=== PATIENT | female | born 1990 | race Caucasian/White ===

== ENCOUNTER 2018-01-04 17:44 | Emergency (ER) | payer BC ==
[2016-10-05 09:15] VITALS: BMI 50.4
[~2018-01-04 17:44] MED LIST: BIRTH CONTROL; BUPROPION XL300 MG PO; EFFEXOR XR150 MG PO; PROTONIX40 MG PO; TENORMIN50 MG PO
[2018-01-04 18:55] LABS: APPEARANCE CLOUDY (CLEAR); COLOR DK YELLOW (YELLOW)
[2018-01-04 18:56] LABS: BACTERIA MANY /hpf (NONE SEEN); BILIRUBIN NEGATIVE (NEGATIVE); EPITHELIAL CELLS 0-5 /hpf (0-5); GLUCOSE NEGATIVE (NEGATIVE); KETONE NEGATIVE (NEGATIVE); NITRITE NEGATIVE (NEGATIVE); PH 5.5 (5.0-6.0); PROTEIN 1+ mg/dL (NEGATIVE); RED CELLS - URINE 0-5 /hpf (0-5); SPECIFIC GRAVITY 1.025 (1.005-1.020)
[2018-01-04 19:04] LABS: BASOPHILS 0.1 % (0-2); EOSINOPHILS 1.1 % (0-7); HEMATOCRIT 37.9 % (36.0-48.0); HEMOGLOBIN 12.5 g/dL (12-16); IMMATURE GRANULOCYTES 0.1 % (0-5); LYMPHOCYTES 27.3 % (15-50); MCH 27.4 pg (26.0-34.0); MCV 82.9 fL (80.0-100.0); MEAN PLATELET VOLUME 9.9 fL (7.4-10.4); MONOCYTES 7.5 % (2-11); NEUTROPHILS 63.9 % (40-80); RBC 4.57 10x6/uL (4.00-5.40); RDW 14.4 % (11.5-14.5); WBC 7.9 10x3/uL (4.8-10.8)
[2018-01-04 19:07] LABS: PLATELET COUNT 249 10x3/uL (130-400)
[2018-01-04 20:16] LABS: HCG SERUM POSITIVE (NEGATIVE)
== END 2018-01-04 21:38 | disposition home or self-care (01) ==
LOC: D.ER 17:44
PROVIDERS: Family Medicine
DX: O20.9 Hemorrhage in early pregnancy, unspecified (principal); Z3A.10 10 weeks gestation of pregnancy

== ENCOUNTER 2018-05-13 17:55 | Outpatient (CLI) | payer MEDICAID ==
[2016-10-05 09:15] VITALS: BMI 50.4
[2018-05-13 19:02] LABS: APPEARANCE CLOUDY (CLEAR); BACTERIA MODERATE /hpf (NONE SEEN); BILIRUBIN NEGATIVE (NEGATIVE); COLOR DK YELLOW (YELLOW); GLUCOSE NEGATIVE (NEGATIVE); KETONE NEGATIVE (NEGATIVE); MUCUS >1+ /lpf (NONE SEEN); NITRITE NEGATIVE (NEGATIVE); PROTEIN TRACE mg/dL (NEGATIVE); UROBILINOGEN NORMAL (NORMAL)
== END 2018-05-13 20:25 | disposition home or self-care (01) ==
LOC: D.LDO 17:55
PROVIDERS: Obstetrics & Gynecology
DX: O26.899 Other specified pregnancy related conditions, unspecified trimester (principal); Z3A.00 Weeks of gestation of pregnancy not specified

== ENCOUNTER → 2018-06-01 09:24 | Outpatient (CLI) | payer BC ==
[2016-10-05 09:15] VITALS: BMI 50.4
== END | disposition home or self-care (01) ==
LOC: D.LDO 09:24
DX: O26.893 Other specified pregnancy related conditions, third trimester (principal); Z3A.31 31 weeks gestation of pregnancy; R19.7 Diarrhea, unspecified

== ENCOUNTER → 2018-06-29 11:27 | Outpatient (CLI) | payer MEDICAID ==
[2016-10-05 09:15] VITALS: BMI 50.4
[2018-06-29 12:18] LABS: APPEARANCE CLEAR (CLEAR); BILIRUBIN NEGATIVE (NEGATIVE); COLOR YELLOW (YELLOW); GLUCOSE NEGATIVE (NEGATIVE); KETONE NEGATIVE (NEGATIVE); NITRITE NEGATIVE (NEGATIVE); PROTEIN NEGATIVE (NEGATIVE); UROBILINOGEN NORMAL (NORMAL)
== END | disposition home or self-care (01) ==
LOC: D.LDO 11:27
PROVIDERS: Obstetrics & Gynecology
DX: O26.899 Other specified pregnancy related conditions, unspecified trimester (principal); Z3A.00 Weeks of gestation of pregnancy not specified

== ENCOUNTER → 2018-07-06 14:22 | Outpatient (CLI) | payer MEDICAID ==
[2016-10-05 09:15] VITALS: BMI 50.4
[2018-07-06 15:52] LABS: BASOPHILS 0.1 % (0-2); EOSINOPHILS 0.5 % (0-7); HEMATOCRIT 31.4 % (36.0-48.0); IMMATURE GRANULOCYTES 0.2 % (0-5); MCH 25.1 pg (26.0-34.0); MCHC 31.8 g/dL (31.0-37.0); MCV 78.9 fL (80.0-100.0); MEAN PLATELET VOLUME 10.4 fL (7.4-10.4); MONOCYTES 9.7 % (2-11); NEUTROPHILS 62.5 % (40-80); PLATELET COUNT 218 10x3/uL (130-400); RBC 3.98 10x6/uL (4.00-5.40); RDW 14.8 % (11.5-14.5); WBC 8.4 10x3/uL (4.8-10.8)
[2018-07-06 15:52] LABS: APPEARANCE HAZY (CLEAR); BILIRUBIN NEGATIVE (NEGATIVE); COLOR YELLOW (YELLOW); GLUCOSE NEGATIVE (NEGATIVE); KETONE MODERATE mg/dL (NEGATIVE); NITRITE NEGATIVE (NEGATIVE); PROTEIN NEGATIVE (NEGATIVE); SPECIFIC GRAVITY 1.015 (1.005-1.020); UROBILINOGEN NORMAL (NORMAL)
[2018-07-06 15:53] LABS: BACTERIA MODERATE /hpf (NONE SEEN); RED CELLS - URINE OCC /hpf (0-5)
[2018-07-06 16:03] LABS: ALBUMIN 2.4 g/dL (3.4-5.0); ALKALINE PHOSPHATASE 129 U/L (46-116); ALT (SGPT) 12 U/L (10-68); BILIRUBIN - TOTAL 0.28 mg/dL (0.2-1.3); CALC OSMOLALITY 271 mosm/kg (275-300); CALCIUM 8.7 mg/dL (8.5-10.1); CARBON DIOXIDE 23.1 mmol/L (21.0-32.0); CHLORIDE - SERUM 103 mmol/L (98-107); CREATININE - SERUM 0.6 mg/dL (0.6-1.3); GLUCOSE 86 mg/dL (74-106); POTASSIUM - SERUM 3.9 mmol/L (3.5-5.1); PROTEIN - SERUM 6.9 g/dL (6.4-8.2); SODIUM 138 mmol/L (136-145); UREA NITROGEN 4 mg/dL (7-18); URIC ACID 4.7 mg/dL (2.6-7.2); eGFR NON AFRICAN AMERICAN > 90 mL/min (90-120)
[2018-07-06 20:01] LABS: APPEARANCE CLEAR (CLEAR); BILIRUBIN NEGATIVE (NEGATIVE); COLOR YELLOW (YELLOW); GLUCOSE NEGATIVE (NEGATIVE); KETONE NEGATIVE (NEGATIVE); NITRITE NEGATIVE (NEGATIVE); PROTEIN NEGATIVE (NEGATIVE); UROBILINOGEN NORMAL (NORMAL)
[2018-07-06 20:02] LABS: BACTERIA MODERATE /hpf (NONE SEEN); EPITHELIAL CELLS 0-5 /hpf (0-5); RED CELLS - URINE 0-5 /hpf (0-5); WHITE CELLS - URINE 0-5 /hpf (0-5)
== END | disposition home or self-care (01) ==
LOC: D.LDO 14:22
PROVIDERS: Obstetrics & Gynecology
DX: O26.893 Other specified pregnancy related conditions, third trimester (principal); Z3A.36 36 weeks gestation of pregnancy; R51 Headache; R42 Dizziness and giddiness; H53.9 Unspecified visual disturbance; R22.43 Localized swelling, mass and lump, lower limb, bilateral; R07.81 Pleurodynia

== ENCOUNTER 2018-07-07 20:59 | Outpatient (CLI) | payer MEDICAID ==
[2016-10-05 09:15] VITALS: BMI 50.4
--- NOTE | ~2018-07-07 | DS ---
PATIENT:SIMONE GARCÍA :89 MEDICAL RECORD: [id number] DISCHARGE SUMMARY ADMISSION DATE: 07/07/18 DISCHARGE DATE: 07/09/18 DATE OF ADMISSION: 07/07/2018 DATE OF DISCHARGE: 07/09/2018 ADMISSION DIAGNOSES: Persistent headache, history of mild preeclampsia. DISCHARGE DIAGNOSIS: Headache, resolved. ATTENDING: Kaden Birch MD HISTORY OF PRESENT ILLNESS: See the H&P in the chart. SUMMARY OF HOSPITALIZATION: The patient was admitted to the hospital and underwent another 24-hour urine, which this time was less than 300. The patient's pressures have been normotensive at bed rest. The patient received Ambien while hospitalized and was able to rest more. The patient states that her headache abated after adequate rest. The patient will be discharged home on Ambien with modified activities. NSTs and antepartum testing have been initiated previously and that will continue until she is delivered. TRANSINT:[id number] Voice Confirmation ID: [id number] DOCUMENT ID: [id number] KADEN BIRCH MD at 0920 CC: [id number] DICTATION DATE: 07/09/18 0847 PLATE SHEAR OPERATOR: 07/09/18 1143 DEP CLI 07/09/18 [id number] [place] [address]
[2018-07-07 22:51] LABS: BASOPHILS 0.1 % (0-2); HEMATOCRIT 31.1 % (36.0-48.0); HEMOGLOBIN 9.9 g/dL (12-16); IMMATURE GRANULOCYTES 0.1 % (0-5); LYMPHOCYTES 28.2 % (15-50); MCH 25.1 pg (26.0-34.0); MCHC 31.8 g/dL (31.0-37.0); MCV 78.7 fL (80.0-100.0); MEAN PLATELET VOLUME 10.8 fL (7.4-10.4); MONOCYTES 7.9 % (2-11); NEUTROPHILS 62.7 % (40-80); PLATELET COUNT 236 10x3/uL (130-400); RBC 3.95 10x6/uL (4.00-5.40); RDW 14.9 % (11.5-14.5); WBC 9.4 10x3/uL (4.8-10.8)
[2018-07-07 22:52] LABS: APPEARANCE CLEAR (CLEAR); BILIRUBIN NEGATIVE (NEGATIVE); COLOR YELLOW (YELLOW); GLUCOSE NEGATIVE (NEGATIVE); KETONE NEGATIVE (NEGATIVE); NITRITE NEGATIVE (NEGATIVE); PROTEIN NEGATIVE (NEGATIVE); UROBILINOGEN NORMAL (NORMAL)
[2018-07-07 22:53] LABS: WHITE CELLS - URINE 0-5 /hpf (0-5)
[2018-07-07 22:54] LABS: BACTERIA MODERATE /hpf (NONE SEEN); RED CELLS - URINE 0-5 /hpf (0-5)
[2018-07-07 23:10] LABS: ALBUMIN 2.4 g/dL (3.4-5.0); ALKALINE PHOSPHATASE 129 U/L (46-116); ALT (SGPT) 12 U/L (10-68); BILIRUBIN - DIRECT 0.08 mg/dL (0.00-0.30); BILIRUBIN - INDIRECT 0.17 mg/dL (0.00-1.00); BILIRUBIN - TOTAL 0.25 mg/dL (0.2-1.3); CALC OSMOLALITY 274 mosm/kg (275-300); CALCIUM 9.3 mg/dL (8.5-10.1); CARBON DIOXIDE 21.7 mmol/L (21.0-32.0); CHLORIDE - SERUM 103 mmol/L (98-107); CREATININE - SERUM 0.7 mg/dL (0.6-1.3); GLUCOSE 129 mg/dL (74-106); PROTEIN - SERUM 6.9 g/dL (6.4-8.2); SODIUM 138 mmol/L (136-145); UREA NITROGEN 3 mg/dL (7-18); URIC ACID 4.8 mg/dL (2.6-7.2); eGFR NON AFRICAN AMERICAN > 90 mL/min (90-120)
[2018-07-07 23:11] LABS: POTASSIUM - SERUM 3.1 mmol/L (3.5-5.1)
[2018-07-08 21:20] LABS: PROTEIN - URINE 18.4 mg/dL (0.0-11.9)
== END 2018-07-09 09:45 | disposition home or self-care (01) ==
LOC: D.LDO 20:59 → D.LD 20:59 → D.LDO 07-09 09:45
PROVIDERS: Obstetrics & Gynecology
DX: O26.893 Other specified pregnancy related conditions, third trimester (principal); Z3A.37 37 weeks gestation of pregnancy

== ENCOUNTER → 2018-07-12 10:03 | Outpatient (CLI) | payer MEDICAID ==
[2016-10-05 09:15] VITALS: BMI 50.4
[~2018-07-12 10:03] MED LIST changes: +PINDOLOL10 MG PO
== END | disposition home or self-care (01) ==
LOC: D.LDO 10:03
DX: O14.93 Unspecified pre-eclampsia, third trimester (principal); Z3A.37 37 weeks gestation of pregnancy

== ENCOUNTER → 2018-07-16 08:30 | Outpatient (CLI) | payer BC ==
[2016-10-05 09:15] VITALS: BMI 50.4
[~2018-07-16 08:30] MED LIST changes: +IBUPROFEN800 MG PO; +PERCOCET 7.5/321 TAB PO
== END | disposition home or self-care (01) ==
LOC: D.LDO 08:30
DX: O26.893 Other specified pregnancy related conditions, third trimester (principal); Z3A.38 38 weeks gestation of pregnancy

== ENCOUNTER → 2018-07-19 08:30 | Outpatient (CLI) | payer BC ==
[2016-10-05 09:15] VITALS: BMI 50.4
== END | disposition home or self-care (01) ==
LOC: D.LDO 08:30
DX: O26.893 Other specified pregnancy related conditions, third trimester (principal); Z3A.38 38 weeks gestation of pregnancy

== ENCOUNTER → 2018-07-20 11:02 | Outpatient (CLI) | payer BC ==
[2016-10-05 09:15] VITALS: BMI 50.4
== END | disposition home or self-care (01) ==
LOC: D.LDO 11:02
DX: Z00.00 Encounter for general adult medical examination without abnormal findings (principal)

== ENCOUNTER 2018-07-23 05:22 | Inpatient (IN) | payer BC, MEDICAID ==
[2018-07-20 12:10] LABS: HEMATOCRIT 31.3 % (36.0-48.0); HEMOGLOBIN 9.8 g/dL (12-16); MCH 24.5 pg (26.0-34.0); MCHC 31.3 g/dL (31.0-37.0); MCV 78.3 fL (80.0-100.0); MEAN PLATELET VOLUME 10.1 fL (7.4-10.4); RDW 15.3 % (11.5-14.5); WBC 9.1 10x3/uL (4.8-10.8)
[2018-07-21 05:14] LABS: RAPID PLASMA REAGIN Non Reactive (Non Reactive)
[~2018-07-23] VITALS: Ht 149.9 cm; Wt 117.5 kg
[2018-07-23] VITALS (12 sets, daily range): BP systolic 112–137; BP diastolic 66–79; Ht 149.9 cm; Wt 117.5 kg
--- NOTE | ~2018-07-23 | DS ---
PATIENT:SIMONE GARCÍA :89 MEDICAL RECORD: [id number] DISCHARGE SUMMARY ADMISSION DATE: 07/23/18 DISCHARGE DATE: 07/25/18 DATE OF ADMISSION: 07/23/2018 DATE OF DISCHARGE: 07/25/2018 ADMISSION DIAGNOSES: 1. History of trauma. 2. Posttraumatic stress disorder. 3. at 39 weeks' gestation. DISCHARGE DIAGNOSES: 1. History of trauma. 2. Posttraumatic stress disorder. 3. Mother delivered at term. 4. Undesired fertility. PROCEDURE: Primary low transverse section. ATTENDING PHYSICIAN: Kaden Birch MD HISTORY OF PRESENT ILLNESS AND INDICATION FOR DELIVERY: Please see H&P in the chart. SUMMARY OF HOSPITALIZATION: The patient was admitted to the hospital and underwent primary section and tubal ligation without incident. By the day of surgery, the patient is tolerating regular diet and voiding without difficulty. By postoperative day #2, the patient is ambulating, voiding and has no complaints. There is adequate pain control with Percocet and NSAIDs. DISCHARGE MEDICATIONS: Will include Percocet 7.5 mg taken one every 4 hours as needed for rjhbowjo-ny-hdpjvs pain and ibuprofen 800 every 8 hours for 2 days followed by every 8 hours p.r.n. for eyob-ol-jnfdkqkn pain. DISCHARGE INSTRUCTIONS: Standard precautions have been reviewed. Follow up in 2 weeks at [facility]. TRANSINT:[id number] Voice Confirmation ID: [id number] DOCUMENT ID: [id number] KADEN BIRCH MD at 1633 CC: [id number] DICTATION DATE: 07/25/18 1415 DRIP MOLDER: 07/26/18 0144 DIS IN 07/25/18 [facility] [address] [place] [address]
--- NOTE | ~2018-07-23 | OP ---
PATIENT NAME: SIMONE GARCÍA MEDICAL RECORD: [id number] :89 LOCATION:[id number] ADMISSION DATE:07/23/18 SURGEON: WILBUR FRENCH MD DATE OF OPERATION: 07/23/2018 PREDELIVERY DIAGNOSES: 1. History of prior trauma. 2. Term . 3. Unwanted fertility. POSTDELIVERY DIAGNOSES: 1. History of prior trauma. 2. Term . 3. Unwanted fertility. 4. Mother delivered at term. PROCEDURE: Primary low transverse section with tubal ligation using a [place] technique. SURGEON: Wilbur French MD SYSTEMS NAVIGATOR: Ephraim Dailey. ANESTHESIOLOGIST: Dr. Harris. ANESTHETIC: Spinal. FINDINGS: Uterus, tubes, and ovaries unremarkable. Infant weighing 8 pounds 8 ounces with Apgars 9 and 9, 3-vessel cord. SPECIMEN REMOVED: Placenta. SPECIMEN DISPOSITION: Discarded. ESTIMATED BLOOD LOSS: 800 cc. FLUIDS: 1400 of lactated Ringer's. URINE OUTPUT: 150 cc of clear urine. COMPLICATIONS: None. DRAIN: Ramirez to gravity. INDICATIONS: The patient is a 27-year-old G2, para 1 with a history trauma and posttraumatic stress disorder. The patient requests primary delivery from the beginning of her . After counseling, the patient wishes to proceed with a section. The patient also understands the risks, benefits, and limitations of a tubal ligation. DESCRIPTION OF PROCEDURE: After informed consent was assured, the patient was taken to the operating room where anesthetic is obtained. The patient was placed in left lateral tilt and prepped and draped. Assessment of the anesthetic found to be adequate and a low transverse incision was made on the abdomen. The abdomen was now entered using Pelosi technique. Then, an Carlos OPERATIVE REPORT [id number] SIMONE GARCÍA retractor was inserted and tightened. DeLee all-purpose retractor was placed in the lower segment and a bladder flap developed. Low transverse hysterotomy was performed and was delivered on to the abdomen atraumatically. The placenta was delivered via Crede maneuver after obtaining cord blood sample. Pitocin was given at cord clamp. After the placenta has been removed, the uterus was cleared of all clot and debris and closed in a running locked fashion with chromic stitch. A second imbricating vertical mattress stitch was used to obtain hemostasis. Bleeding was noted from the left and right corners and interrupted stitches were placed in both of these locations. A pltzqs-ld-yidfr stitch also placed in the midline. The pelvis was irrigated and the irrigant removed. Inspection of the lower segment revealed adequate hemostasis. The peritoneum and rectus bellies were reapproximated well and the fascia was now closed with looped PDS. An inspection of the rectus bellies prior to the close of the fascia reveals adequate hemostasis. Due to the layer of soft tissue between the skin and the fascia, 2 running stitches of plain gut used to reapproximate the fat pad. The subcuticular stitch was applied and sterile dressing with Steri-Strips now covers the abdomen. Sponge, lap, and needle counts correct times 3. The patient went to the recovery area in stable condition. TRANSINT:[id number] Voice Confirmation ID: [id number] DOCUMENT ID: [id number] WILBUR FRENCH MD at 1031 CC: [id number] DICTATION DATE: 07/23/18 09 ADOBE MAKER: 07/23/18 1004 ADM IN [facility] [address] [place] [address]
[~2018-07-23 05:22] MED LIST changes: -IBUPROFEN800 MG PO; -PERCOCET 7.5/321 TAB PO; -PINDOLOL10 MG PO
[2018-07-23] MEDS ORDERED: PINDOLOL10 MG PO (05:28)
[2018-07-23 05:59] LABS: HEMATOCRIT 30.4 % (36.0-48.0); HEMOGLOBIN 9.6 g/dL (12-16); MCH 24.4 pg (26.0-34.0); MCHC 31.6 g/dL (31.0-37.0); MCV 77.2 fL (80.0-100.0); MEAN PLATELET VOLUME 10.3 fL (7.4-10.4); RBC 3.94 10x6/uL (4.00-5.40); RDW 15.3 % (11.5-14.5); WBC 10.6 10x3/uL (4.8-10.8)
[2018-07-23 06:00] LABS: APPEARANCE HAZY (CLEAR); BILIRUBIN NEGATIVE (NEGATIVE); COLOR YELLOW (YELLOW); EPITHELIAL CELLS RARE /hpf (0-5); GLUCOSE NEGATIVE (NEGATIVE); KETONE MODERATE mg/dL (NEGATIVE); NITRITE NEGATIVE (NEGATIVE); PROTEIN NEGATIVE (NEGATIVE); RED CELLS - URINE NONE SEEN /hpf (0-5); UROBILINOGEN NORMAL (NORMAL); WHITE CELLS - URINE 0-5 /hpf (0-5)
[2018-07-23 06:01] LABS: BACTERIA NONE SEEN /hpf (NONE SEEN)
[2018-07-24 07:27] LABS: RAPID PLASMA REAGIN Non Reactive (Non Reactive)
[2018-07-24 07:40] VITALS: BP 126/81
[2018-07-24 16:09] VITALS: BP 126/81
[2018-07-24 19:30] VITALS: BP 118/63
[2018-07-25 07:50] VITALS: BP 121/66
[2018-07-25] MEDS ORDERED: PERCOCET 7.5/321 TAB PO (14:20)
[2018-07-25] MEDS ORDERED: IBUPROFEN800 MG PO (14:20)
== END 2018-07-25 14:45 | disposition home or self-care (01) | DRG 785 ==
LOC: D.LD 05:22 → D.SDCHOLD 07:30 → D.LD 20:00
PROVIDERS: Obstetrics & Gynecology
PROC: 0UB70ZZ Excision of Bilateral Fallopian Tubes, Open Approach (ICD-10-PCS; principal; 2018-07-23 07:30)
PROC: 10D00Z1 Extraction of Products of Conception, Low, Open Approach (ICD-10-PCS; 2018-07-23 07:30)
DX: O75.89 Other specified complications of labor and delivery (principal); Z30.2 Encounter for sterilization; Z3A.39 39 weeks gestation of pregnancy; Z37.0 Single live birth; F43.10 Post-traumatic stress disorder, unspecified